=== PATIENT | female | born 1960 | race Caucasian/White ===

== ENCOUNTER 2020-09-08 22:28 | Observation (INO) | payer OTHER, SELFPAY ==
[~2020-09-08] VITALS: Ht 162.6 cm; Wt 84.8 kg
[2020-09-08 22:28] VITALS: BP 136/32
[2020-09-08 23:08] LABS: BASOPHILS # (AUTO) 0.1 K/uL (0.00-0.22); BASOPHILS % (AUTO) 0.7 % (0.0-2.0); EOSINOPHILS # (AUTO) 0.2 K/uL (0-0.4); EOSINOPHILS % (AUTO) 2.1 % (0.0-4.0); LYMPHOCYTES # (AUTO) 1.2 K/uL (2.5-16.5); LYMPHOCYTES % (AUTO) 14.6 % (20.5-51.1); MEAN CORPUSCULAR HEMOGLOBIN 27 pg (27-31); MEAN CORPUSCULAR HGB CONC 32 g/dL (33-37); MONOCYTES # (AUTO) 0.5 K/uL (0.8-1.0); MONOCYTES % (AUTO) 6.9 % (1.7-9.3); NEUTROPHILS % (AUTO) 75.7 % (42.2-75.2); PLATELET COUNT (AUTO) 219 K/uL (140-450); RED BLOOD CELL COUNT(AUTO) 2.29 MIL/uL (4.20-5.40); RED CELL DISTRIBUTION WIDTH 16.1 % (11.6-13.7); WHITE BLOOD COUNT (AUTO) 7.9 K/uL (4.8-10.8)
[2020-09-08 23:19] LABS: HEMATOCRIT 19.4 % (36-48)
[2020-09-08 23:22] LABS: ANION GAP 17.1 (8-16); CARBON DIOXIDE 30.1 mmol/L (21-32); CREATININE 0.7 mg/dL (0.6-1.3); POTASSIUM 4.2 mmol/L (3.5-5.1)
[2020-09-08 23:24] LABS: PROTHROMBIN TIME 12.3 secs (10.8-13.4)
[2020-09-08 23:28] LABS: ALBUMIN 3.3 g/dL (3.4-5.0); BILIRUBIN,DIRECT 0.2 mg/dL (0.0-0.3); TOTAL BILIRUBIN 0.5 mg/dL (0.0-1.0)
[2020-09-08 23:59] LABS: HEMOGLOBIN 6.2 g/dL (12.0-16.0)
[2020-09-09] VITALS (7 sets, daily range): BP systolic 96–157; BP diastolic 32–96
[2020-09-09] MEDS ORDERED: ACETAMINOPHEN 325 MG TAB PO PRN (00:15)
[2020-09-09] MEDS ORDERED: ONDANSETRON 4 MG/2 ML VIAL IVP PRN (00:15)
[2020-09-09] MEDS ORDERED: SILD20TA13 GT (00:43)
[2020-09-09] MEDS ORDERED: ATOR10TA GT (00:43)
[2020-09-09] MEDS ORDERED: APIX2.5 GT (00:43)
[2020-09-09] MEDS ORDERED: AMLO5TAB GT (00:43)
[2020-09-09] MEDS ORDERED: CHOL2400 GT (00:43)
[2020-09-09] MEDS ORDERED: CARV6.25 GT (00:43)
[2020-09-09] MEDS ORDERED: ALPR0.252 GT (00:43)
[2020-09-09] MEDS ORDERED: INSU100S22 SUBQ (00:43)
[2020-09-09] MEDS ORDERED: MELA10CA GT (00:43)
[2020-09-09] MEDS ORDERED: DOCU250S72 GT (00:43)
[2020-09-09] MEDS ORDERED: QUET25TA GT (00:43)
[2020-09-09] MEDS ORDERED: PANT40EC GT (00:43)
[2020-09-09] MEDS ORDERED: GABA300C GT (00:43)
[2020-09-09] MEDS ORDERED: DULO30EC GT (00:43)
[2020-09-09] MEDS ORDERED: DIGO0.122 GT (00:43)
[2020-09-09 00:48] LABS: PROTHROMBIN TIME 12.2 secs (10.8-13.4)
[2020-09-09 08:49] LABS: BASOPHILS # (AUTO) 0.1 K/uL (0.00-0.22); EOSINOPHILS # (AUTO) 0.1 K/uL (0-0.4); EOSINOPHILS % (AUTO) 1.5 % (0.0-4.0); HEMATOCRIT 23.2 % (36-48); HEMOGLOBIN 7.5 g/dL (12.0-16.0); LYMPHOCYTES # (AUTO) 1.4 K/uL (2.5-16.5); LYMPHOCYTES % (AUTO) 18.9 % (20.5-51.1); MEAN CORPUSCULAR HEMOGLOBIN 27 pg (27-31); MEAN CORPUSCULAR HGB CONC 32 g/dL (33-37); MEAN CORPUSCULAR VOLUME 84.5 fL (80-94); MONOCYTES # (AUTO) 0.5 K/uL (0.8-1.0); MONOCYTES % (AUTO) 6.8 % (1.7-9.3); NEUTROPHILS # (AUTO) 5.5 K/uL (1.8-7.7); NEUTROPHILS % (AUTO) 71.8 % (42.2-75.2); PLATELET COUNT (AUTO) 208 K/uL (140-450); RED BLOOD CELL COUNT(AUTO) 2.74 MIL/uL (4.20-5.40); RED CELL DISTRIBUTION WIDTH 15.7 % (11.6-13.7); WHITE BLOOD COUNT (AUTO) 7.6 K/uL (4.8-10.8)
[2020-09-09 08:53] LABS: ANION GAP 10.6 (8-16); CARBON DIOXIDE 31.6 mmol/L (21-32); CREATININE 0.7 mg/dL (0.6-1.3); POTASSIUM 4.2 mmol/L (3.5-5.1)
[2020-09-09] MEDS: ENOXAPARIN 40 MG/0.4 ML SYR SUBQ SCH (09:16)
[2020-09-09] MEDS: LORazepam 2 MG/ML VIAL IVP PRN ×2 (13:23→20:30)
[2020-09-09] MEDS: MORPHINE SULFATE 2 MG/ML SYR IVP PRN (19:03)
[2020-09-09 22:08] LABS: HEMATOCRIT 26.9 % (36-48); HEMOGLOBIN 8.8 g/dL (12.0-16.0)
[2020-09-10] MEDS: MORPHINE SULFATE 2 MG/ML SYR IVP PRN ×2 (01:39→10:15)
[2020-09-10 04:00] VITALS: BP 149/47
[2020-09-10] MEDS: LORazepam 2 MG/ML VIAL IVP PRN ×2 (05:19→14:47)
[2020-09-10 06:55] LABS: BASOPHILS # (AUTO) 0.1 K/uL (0.00-0.22); BASOPHILS % (AUTO) 0.7 % (0.0-2.0); EOSINOPHILS # (AUTO) 0.1 K/uL (0-0.4); HEMATOCRIT 26.7 % (36-48); HEMOGLOBIN 8.7 g/dL (12.0-16.0); LYMPHOCYTES # (AUTO) 1.4 K/uL (2.5-16.5); LYMPHOCYTES % (AUTO) 19.7 % (20.5-51.1); MEAN CORPUSCULAR HEMOGLOBIN 28 pg (27-31); MEAN CORPUSCULAR HGB CONC 33 g/dL (33-37); MEAN CORPUSCULAR VOLUME 85.9 fL (80-94); MONOCYTES # (AUTO) 0.6 K/uL (0.8-1.0); MONOCYTES % (AUTO) 8.2 % (1.7-9.3); NEUTROPHILS # (AUTO) 4.8 K/uL (1.8-7.7); NEUTROPHILS % (AUTO) 69.4 % (42.2-75.2); PLATELET COUNT (AUTO) 220 K/uL (140-450); RED BLOOD CELL COUNT(AUTO) 3.11 MIL/uL (4.20-5.40); RED CELL DISTRIBUTION WIDTH 15.8 % (11.6-13.7)
[2020-09-10 07:25] LABS: ALBUMIN 3.3 g/dL (3.4-5.0); CARBON DIOXIDE 29.7 mmol/L (21-32); CREATININE 0.7 mg/dL (0.6-1.3); POTASSIUM 3.7 mmol/L (3.5-5.1); TOTAL BILIRUBIN 0.6 mg/dL (0.0-1.0)
[2020-09-10] MEDS: ENOXAPARIN 40 MG/0.4 ML SYR SUBQ SCH (10:14)
[2020-09-10] MEDS ORDERED: DOCUSATE 100 MG/10 ML UDC GT SCH ×2 (11:00→21:00)
[2020-09-10 11:05] VITALS: BP 137/40
[2020-09-10 16:00] VITALS: BP 146/50
[2020-09-10 17:54] VITALS: BP 146/50
== END 2020-09-10 20:53 | disposition home or self-care (01) ==
LOC: MED 22:28 → MMU 09-09 00:33 → MTU 09-09 01:18
PROVIDERS: ADMIT Internal Medicine; ATTEND Internal Medicine
DX: D64.9 Anemia, unspecified (principal); Z99.11 Dependence on respirator [ventilator] status; J96.10 Chronic respiratory failure, unspecified whether with hypoxia or hypercapnia
CPT/HCPCS: 36415; 36430; 80048; 80053; 80076; 84484; 85018; 85025; 85610; 85730; 86886; 86900; 86901; 86920; 87070; 87081; 87205; 87426; 89220; 94003; 94760; 96372; 96374; 96375; 96376; 99285; G0378; J1650; J2060; J2270; P9016

== ENCOUNTER 2020-12-22 23:06 | Emergency (ER) | payer OTHER, SELFPAY ==
[~2020-12-22] VITALS: Ht 162.6 cm; Wt 97.5 kg
[2020-12-22] MEDS: NACL 0.9% 1,000 ML IV ONE (00:23)
[2020-12-22 23:06] VITALS: BP 137/62
[~2020-12-22 23:06] MED LIST: ALPR0.252 GT; AMLO5TAB GT; APIX2.5 GT; ATOR10TA GT; CARV6.25 GT; CHOL2400 GT; DIGO0.122 GT; DOCU250S72 GT; DULO30EC GT; GABA300C GT; INSU100S22 SUBQ; MELA10CA GT; PANT40EC GT; QUET25TA GT; SILD20TA13 GT
--- NOTE | 2020-12-22 23:06 | NUR ---
PT BIBA ALS. TAKEN TO BED 10. RT AT BEDSIDE
--- NOTE | 2020-12-22 23:07 | NUR ---
PT HAS SIZE 7 PORTEX TRACH, AIRWAY WAS PATENT, PLACED PT ON VENT, VENT PLUGGED INTO RED OUTLET, ALL ALARMS ON AND WORKING, VENT SETTINGS RECIEVED FROM PREVIOUS FACILITY WERE, AC/VC 450, RR14, PEEP 6, FIO2 100%. THE PATEINT DID NOT TOLERATE THE GIVEN SETTINGS AND WAS PEAK PRESSURING ON THE VENT, I PLACED THE PATIENT ON PRVC 450, 0.90 INSPIRATORY TIME, RR 16, FIO2 100%. PT TOLERATED THE CHANGE AND WAS IN NO RESPIRATORY DISTRESS.
--- NOTE | 2020-12-22 23:07 | NUR ---
60 YO F BIBA FOR UNRESPONSIVENESS. PER EMS, CPR WAS PERFOMED AND ROSC WAS ACHIEVED AFTER 5 MINS. PT ARRIVED BAG VALVE VIA TRACH, PLACED ON VENT BY RT. HIGH PEAK PRESSURES NOTED. 98-100% SPO2. + PERIPHERAL PULSES. SKIN COOL DIAPHORETIC. BS CHECKED 384. PUPILS SLUGGISH, PERRL, RESPONDS TO PAINFUL STIMULI. SR WITH PAC/PVCS ON MONITOR. DIMINISHED BREATH SOUNDS. PEG TUBE IN PLACE, + PLACEMENT. INCONTINENT TO URINE/STOOL. ERMD @ BEDSIDE. HX: CAD, CARDIAC ARREST, S/P AICD, OBESITY, AMBIKA, OHS, DM CHF, CRF, TRACHEOSTOMY, DYSPHAGIA, GTUBE.
--- NOTE | 2020-12-22 23:15 | NUR ---
LABS OK TO DRAW VIA R UPPER CHEST CENTRAL LINE.
[2020-12-22 23:35] LABS: RED BLOOD CELL COUNT(AUTO) 3.65 MIL/uL (4.20-5.40)
[2020-12-22 23:42] LABS: HEMATOCRIT 32.2 % (36-48); HEMOGLOBIN 9.3 g/dL (12.0-16.0); MEAN CORPUSCULAR HEMOGLOBIN 25 pg (27-31); MEAN CORPUSCULAR HGB CONC 29 g/dL (33-37); MEAN CORPUSCULAR VOLUME 88.1 fL (80-94); PLATELET COUNT (AUTO) 228 K/uL (140-450); RED CELL DISTRIBUTION WIDTH 20.7 % (11.6-13.7)
--- NOTE | 2020-12-22 23:42 | NUR ---
X-Ray at bedside.
[2020-12-22 23:44] VITALS: BP 129/58
[2020-12-22 23:50] LABS: ALBUMIN 3.6 g/dL (3.4-5.0); ANION GAP 14.5 (8-16); CARBON DIOXIDE 31.7 mmol/L (21-32); CREATININE 1.1 mg/dL (0.6-1.3); TOTAL BILIRUBIN 0.6 mg/dL (0.0-1.0)
[2020-12-22] MEDS ORDERED: LEVOFLOXACIN 750 MG/D5W PREMIX 150 ML IV ONE (23:50)
[2020-12-22] MEDS ORDERED: MEROPENEM 1,000 MG in NACL 0.9% 100 ML IV ONE (23:50)
[2020-12-22] MEDS ORDERED: ETOMIDATE 20 MG/10 ML VIAL IVP ONE (23:50)
[2020-12-22 23:57] LABS: POTASSIUM 6.2 mmol/L (3.5-5.1)
--- NOTE | 2020-12-23 00:10 | NUR ---
PT TAKEN TO CT
--- NOTE | 2020-12-23 00:10 | NUR ---
PT TAKEN TO CT, TOLERATED PROCEDURE. EN ROUTE BACK TO ER PT BECAME DIFFICULT TO BAG. IMMEDIATELY TAKEN TO ER 10, HOOKED PT BACK UP TO VENTILATOR AND MONITORING EQUIPMENT. PT BECAME BRADYCARDIC 30-40S + FEMORAL PULSES. ERMD STATED TO GIVE ATROPINE 1 MG GIVEN. PT THEN BECAME DUSKY/PALLOR. PEA/ NO PULSES. CODE BLUE INITIATED. ERMD/CODE TEAM @ BEDSIDE. SEE CODE SHEET FOR DETAILS
--- NOTE | 2020-12-23 00:18 | NUR ---
PT RETURN FROM CT
[2020-12-23 00:20] LABS: LYMPHOCYTES % (MANUAL) 27 % (20-46); MONOCYTES % (MANUAL) 8 % (5-12)
[2020-12-23] MEDS: SODIUM BICARBONATE 4.2% 5 MEQ/10 ML SYR IV ONE (00:20)
[2020-12-23] MEDS: DEXTROSE 50% 50 ML SYR IVP ONE (00:23)
[2020-12-23] MEDS ORDERED: SODIUM BICARBONATE 8.4% PFS 50 MEQ/50 ML SYR IVP ONE (00:23)
[2020-12-23] MEDS: INSULIN REGULAR, HUMAN 100 UNIT/ML VIAL IVP ONE (00:24)
--- NOTE | 2020-12-23 00:32 | NUR ---
Dr. Lemos examining patient.
[2020-12-23] MEDS ORDERED: DOPPLER MC ONE (00:36)
[2020-12-23] MEDS ORDERED: INTUBATION KIT MC ONE (00:36)
[2020-12-23] MEDS: NACL 0.9% 1,000 ML IV ONE (00:45)
--- NOTE | 2020-12-23 00:53 | NUR ---
TIME OF EXPIRATION PRONOUNCED BY DR. LANTIGUA AT THIS TIME
--- NOTE | 2020-12-23 01:05 | NUR ---
FAMILY CALLED; DAUGHTER, SAM, AWARE OF PT EXPIRATION. FAMILY TO COME SEE DECEDENT.
--- NOTE | 2020-12-23 01:26 | NUR ---
PARKING SUPERVISOR CALLED [phone], YURIYUTY, PATRICK, PT INFO GIVEN. AWAITING CALL BACK FROM PARKING SUPERVISOR.
--- NOTE | 2020-12-23 02:12 | NUR ---
0010 PATIENT TAKEN TO CAT SCAN BEING BAGGED AT 100%. TAKING PATIENT BACK TO ER PATIENT WAS HARD TO BAG. VERY HARD TO GET AIR INTO PATIENT. PLACED PATIENT BACK ON VENT AND PATIENT WAS NOT RECEIVING TARGET TIDAL VOLUMES,. STARTED TO BAG PATIENT AND PATIENTS HEART RATE WAS DROPPING. DOCTOR GRZEGORZ REAL AND CODE WAS STARTED
--- NOTE | 2020-12-23 03:30 | NUR ---
CHIEF PILOT MARIANNA RETURNED PHONE CALL, BODY RELEASED, .
--- NOTE | 2020-12-23 04:28 | NUR ---
daughter, felisha, called to update and get ETA to see decedent. family stated 2-2.5 hours. informed charge nurse.
--- NOTE | 2020-12-23 04:30 | NUR ---
Get chauhan in ED - 12/23/20 at 0659 by VAHID tk daniel, stated she will be here in 2 hours.
--- NOTE | 2020-12-23 06:59 | NUR ---
pt transported to replaced by [facility]
--- NOTE | 2020-12-23 07:10 | NUR ---
REPORT GIVEN TO DAY SHIFT FOR CONTINUITY OF CARE
--- NOTE | 2020-12-23 07:11 | NUR ---
Report received from ELE Moe. Transfer of care received
--- NOTE | 2020-12-23 08:19 | NUR ---
[facility] CALLED BY CHARGE NURSE HANNAH RN FOR PATIENT TRANSFER Addendum: 12/23/20 at 0823 by [email or web address] ETA 2-2.5 HOURS FOR PATIENT TRANSFER. ELE YOUNG SPOKE WITH LISA
[2020-12-23 16:18] VITALS: BP 0/0
--- NOTE | 2020-12-23 16:18 | NUR ---
[facility]. FAMILY NOTIFTED
== END 2020-12-23 00:53 ==
LOC: MED 23:06
DX: J18.9 Pneumonia, unspecified organism (principal); Z20.822 Contact with and (suspected) exposure to COVID-19; R65.21 Severe sepsis with septic shock; E87.5 Hyperkalemia; G93.40 Encephalopathy, unspecified; I46.9 Cardiac arrest, cause unspecified; E11.9 Type 2 diabetes mellitus without complications; I11.0 Hypertensive heart disease with heart failure; I50.9 Heart failure, unspecified; Z88.5 Allergy status to narcotic agent; Z88.6 Allergy status to analgesic agent; Z88.0 Allergy status to penicillin; Z88.8 Allergy status to other drugs, medicaments and biological substances; Z91.040 Latex allergy status; Z79.4 Long term (current) use of insulin; Z79.899 Other long term (current) drug therapy; Z86.73 Personal history of transient ischemic attack (TIA), and cerebral infarction without residual deficits; Z95.0 Presence of cardiac pacemaker; Z98.890 Other specified postprocedural states
CPT/HCPCS: 36415; 36600; 70450; 71045; 80053; 82803; 83605; 85025; 87040; 87426; 96374; 96375; 99291; J1815; J3490; J7030; Q0092; 99284